=== PATIENT | female | born 1940 | race Caucasian/White ===

== ENCOUNTER 2025-05-26 10:03 | Day surgery (SDC) | payer MEDICARE, SELFPAY ==
[2025-05-22 15:05] VITALS: BMI 31.8
--- NOTE | ~2025-05-26 | FL_ITS ---
EXAMINATION: [place] GUIDANCE ONLY HISTORY: Procedural guidance COMPARISON: None available. TECHNIQUE: Fluoroscopy time: 14 seconds. Cumulative Dose: 3.60 mGy. DAP: 157.95 uGym2 Images: 1. FINDINGS: A single fluoroscopic spot film of the lumbar spine demonstrates a needle and contrast material in the region of the left L5-S1 facet joints. FL/FL guidance in OR IMPRESSION: Fluoroscopy during procedure. Please see procedure report for additional information. Electronically signed by: Gerson Abdi MD 05/26/2025 11:40 AM [facility]
--- NOTE | 2025-05-26 10:23 | HO.ANESPROP2 ---
[facility] Active Problems Active Problems: All Active Problems History of breast cancer (Acute) Obesity (BMI 30.0-34.9) (Acute) Neuropathy (Acute) GERD (gastroesophageal reflux disease) (Acute) Pure hypercholesterolemia (Acute) Essential hypertension (Acute) Lumbar radiculitis (Acute) Past Medical History Medical History Breast cancer Diabetes GERD (gastroesophageal reflux disease) Elevated cholesterol HTN (hypertension) Lumbar radiculitis Family History Family History Mother Alzheimer disease Mental health disorder Father Prostate cancer Surgical History Surgical History History of partial mastectomy of left breast History of knee surgery History of cholecystectomy History of lung surgery History of hysterectomy History of Problems with Anesthesia: No Social History Social History Housing: House Alcohol intake: current Alcohol intake frequency: holidays/special occasions only Alcohol type: beer and wine Patient Tobacco Use Status: Never used Tobacco e-Cigarette/Vaping Use: Never Used Second Hand Smoke Exposure: No Use of substances other than those prescribed or required for medical reasons: No Advance Directives: No Advance Directives Information Provided: Yes service: No Current occupational status: disabled Cognitive needs: Yes Hearing needs: No Vision needs: No Meds Allergies Allergy/AdvReac Type Severity Reaction Status Date / Time acetaminophen (From Vicodin) AdvReac Mild stomach Verified 12/22/21 13:07 irritation aspirin AdvReac Mild stomach Verified 12/22/21 13:07 irritation carisoprodol (From Soma) AdvReac Mild stomach Verified 12/22/21 13:07 irritation hydrocodone (From Vicodin) AdvReac Mild stomach Verified 12/22/21 13:07 irritation Active Medications: Current Medications Lactated Ringer's (Lr) 1,000 mls @ 100 mls/hr IVCONT .Q10H AMIRA Home Medications ?Medication ?Instructions ?Recorded ?Confirmed ?Last Taken ?Type atorvastatin 10 mg tablet 10 mg PO DAILY 12/22/21 05/22/25 Unknown History betamethasone valerate 0.1 % appl topical 12/22/21 12/22/21 Unknown History topical cream gabapentin 800 mg tablet 800 mg PO BEDTIME 12/22/21 12/22/21 Unknown History omeprazole 20 mg capsule,delayed 20 mg PO BID 12/22/21 05/22/25 Unknown History release anastrozole 1 mg tablet 1 mg PO DAILY 05/22/25 05/22/25 Unknown History cyclobenzaprine 10 mg tablet 10 mg PO BEDTIME 05/22/25 05/22/25 Unknown History lisinopril 10 mg tablet 10 mg PO DAILY 05/22/25 05/22/25 Unknown History tramadol 50 mg tablet 50 mg PO Q6H PRN Pain 05/22/25 05/22/25 Unknown History Exam Height,Weight and Vital Signs: Height 5 ft Weight 73.8 kg Airway Mallampati Class: II (edentulous) TM Dist: >3cm Neck ROM: Full Denture: Upper and Lower Loose/Missing/Broken Teeth: Yes, Upper and Lower Heart: RRR Lungs: CTA Assessment and Plan Assessment Anesthesia Assessment: Anesthesia Plan Discussed and Chart Reviewed Final Anesthetic Review History of Problems with Anesthesia: No NPO: Yes ASA Class: III Final Preanesthetic Review: Meds/Allgs Chart Reviewed, Consent Obtained/Reviewed and Anes Risks/Benef Reviewed Patient Risk: Intermediate Procedure Risk: Low Anesthetic Plan Anesthetic Plan: MAC: Disposition: Standard PACU
--- NOTE | 2025-05-26 10:29 | MHC.SHP ---
Pre-Procedural Eval Section A - 24 Hr Update-Section A only Date of Service: 05/26/25 The patient is an INPATIENT: No Changes since office visit: No Cold of Flu in the past 2 weeks, No New Medical Problems, No Changes in Medication and No Patient answered all questions Section B - Complete if H&P > 30 days Chief Complaint: Radiculopathy, lumbar region Details of Present Illness: Chronic lumbar radiculitis spinal stenosis Relevant Family History (Specify if Yes): No Relevant Social History: None Present Medications: see Short Stay Collaborative assessment Medical History: No relevant PMH History of Previous Operations: No relevant previous surgery Allergies: Allergies Allergy/AdvReac Type Severity Reaction Status Date / Time acetaminophen (From Vicodin) AdvReac Mild stomach Verified 12/22/21 13:07 irritation aspirin AdvReac Mild stomach Verified 12/22/21 13:07 irritation carisoprodol (From Soma) AdvReac Mild stomach Verified 12/22/21 13:07 irritation hydrocodone (From Vicodin) AdvReac Mild stomach Verified 12/22/21 13:07 irritation Review of Systems Sugical H&P ROS: Negative: Constitution, Cardiovascular, Respiratory, Neurological, Psychiatric, Hem-Onc, Allergic/Immunologic, Gastrointestinal, Genitourinary, Musculoskeletal, Integumentary, Endocrine and Eyes/Ears/Nose/Throat Exam Surgical H&P Exam: Normal: HEENT, Normal: Heart, Normal: Lungs, Normal: Extremities, Normal: Abdomen, Normal: Skin and Normal: Neurological Plan Diagnosis/Plan: Unchanged I have reviewed the history and physical and performed a pertinent physical examination on my patient. No changes have occurred unless specified. Time Spent With Patient Time: Total time managing care of this patient today ____ minutes.
--- NOTE | 2025-05-26 10:30 | W.PM.OPN ---
Operative Note Operative Note Date of Service: 05/26/25 Narrative: Procedure performed: Left L5 transforaminal epidural steroid injection Preop diagnosis: Lumbar radiculitis Postop diagnosis: The same Anesthesia: Mac After informed consent was obtained, patient was placed on the procedure table in a prone position. Skin over lumbosacral area was prepped and draped in usual sterile manner. Left L5 pedicle was visualized utilizing fluoroscopy. 5 inch 22 gauge spinal needle was introduced percutaneously and advanced towards the pedicle at about 6 o'clock position. Once level of neural foramina was reached, needle placement was verified utilizing 3 cc of Omnipaque contrast solution. Excellent flow through the neural foramina and epidural spread was identified without evidence of vascular uptake. Total volume of 6 cc containing 2 cc of 1% lidocaine, 40 mg of triamcinolone and normal saline solution were injected after negative aspiration for blood and cerebrospinal fluid. Radiation exposure was documented in the chart.
[2025-05-26 10:32] VITALS: BP 176/82; PULSE 102; RESP 20; TEMP 37.2; O2SAT 95
[2025-05-26] MEDS: Lactated Ringers 1,000 ML 100 ML IVCONT (10:37)
[2025-05-26 10:38] LABS: Glucose, Whole Blood 133 mg/dL (60-115)
[2025-05-26 11:14] VITALS: BP 164/77; PULSE 91; RESP 18; TEMP 36.7; O2SAT 100
[2025-05-26 11:29] VITALS: BP 154/75; PULSE 94; RESP 16; TEMP 36.7; O2SAT 96
--- OUTSIDE RECORDS SUMMARY | 2025-05-26 11:56 | XMS_ITS | Clinical Summary ---
Author Organization [facility] Address [address] [place] [address] Care Team Providers Care Market Relationship Manager Name Role Phone Saba Denny MD Primary Care Prov ider Allergies Active Allergy Reactions Criticality Noted Date Comments Aspirin 01/19/2023 Carisoprodol 09/22/2006 Other reaction(s): Numbness, tingling or swelling of the lips, tongue or mouth Hydrocodone 01/19/2023 Hydrocodone-Acetaminoph en Nausea And Vomiting 09/22/2006 Pravastatin 10/20/2014 Diarrhea, abd pain Medications Medication Sig Dispensed Refills Start Date End Date Status atorvastatin (LIPITOR) tablet 10 mg Take 1 tablet (10 mg total) by mouth every evening. 0 Active chlorthalidone (HYGROTON) 25 MG tablet Take 1 tablet (25 mg total) by mouth daily. 0 Active clopidogrel (PLAVIX) 75 MG tablet Take 1 tablet (75 mg total) by mouth daily. 0 Active dicyclomine (BENTYL) 10 MG capsule Take 1 capsule (10 mg total) by mouth 4 (four) times a day before meals and at bedtime. 0 Active FLUoxetine (PROzac) 20 MG capsule Take 1 capsule (20 mg total) by mouth daily. 0 Active gabapentin (NEURONTIN) 800 MG tablet Take 1 tablet (800 mg total) by mouth every night at bedtime. 0 Active loperamide (IMODIUM) 2 MG capsule Take 1 capsule (2 mg total) by mouth 4 (four) times a day as needed for diarrhea. 0 Active LORazepam (ATIVAN) 0.5 MG tablet Take 1 tablet (0.5 mg total) by mouth as needed for anxiety. 0 Active omeprazole (PriLOSEC) 20 MG capsule Take 1 capsule (20 mg total) by mouth 2 (two) times a day. 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 Overview: Incidental finding Obesity 06/16/2014 Carpal tunnel syndrome 03/05/2013 Overview: bilateral 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 01/02/2012 Overview: On Aromasin until 2016 - stopped due to osteoporosis HTN (hypertension) 05/23/2011 Osteoporosis 04/19/2011 Overview: On alendronate, stopped 2015 ?GI side effects Anxiety state 04/18/2007 Family History Medical History Relation Name Comments Prostate cancer Father Cancer Sister Relation Name Status Comments Father Mother Sister Social History Tobacco Use Types Packs/Day Years Used Date Smoking Tobacco: Never Smokeless Tobacco: Never Tobacco Cessation:Counseling Given: Not Answered Alcohol Use Standard Drinks/Week Comments Not Currently 0 (1 standard drink = 0.6 oz pur e alcohol) Sex and Gender Information Value Date Recorded Sex Assigned at Female 01/02/2023 3:38 PM EDT Gender Identity Not on file Sexual Orientation Not on file Job Start Date Occupation Industry Not on file Not on file Not on file Last Filed Vital Signs Vital Sign Reading Time Taken Comments Blood Pressure 145/68 12/13/2023 11:13 AM EDT Pulse 88 12/13/2023 11:13 AM EDT Temperature 37.4 C (99.3 F) 12/13/2023 11:13 AM EDT Respiratory Rate - - Oxygen Saturation 96% 12/13/2023 11:13 AM EDT Inhaled Oxygen Concentration - - Weight 75.8 kg (167 lb) 12/13/2023 11:13 AM EDT Height 152.4 cm (5') 12/13/2023 10:27 AM EDT Body Mass Index 32.61 12/13/2023 10:27 AM EDT Plan of Treatment Health Maintenance Due Date Last Done Comments Depression Screening 1952 BMI Counseling 02/06/1958 Preventative Health Evaluation 02/06/1958 Shingrix-Zoster Vaccine (1 of 2) 02/06/1959 Fall Risk Assessment 02/06/2005 Osteoporosis Screening (DEXA Scan) 02/06/2005 RSV Adult > 60+ Yrs or (1 - 1-dose 75+ series) 02/06/2015 COVID-19 Vaccine ( season) 2025 07/19/2021, 09/09/2020, 08/17/2020 Influenza Vaccine (#1) 2025 3, 04/19/2022, 06/03/2021, Additional history exists DTap / Tdap / Td (2 - Td or Tdap) 06/12/2025 06/12/2015 Pneumococcal Vaccine Completed 01/28/2016, 10/27/19 10 Hepatitis B Vaccines Aged Out No long er eligible based on patient's age to complete this topic RSV Ped < 20 months Aged Out No longe r eligible based on patient's age to complete this topic Care Teams Market Relationship Manager Relationship Specialty Start Date End Date Saba Denny MD [address] [place] [address] PCP - General Internal Medicine 01/02/23
--- OUTSIDE RECORDS SUMMARY | 2025-05-26 11:56 | XMS_ITS ---
Author Name [facility] Organization Unknown Care Team Organization Name Specialty Phone Email Start Date End Da te [facility] 02/19/2025 [facility] Saba Denny Primary Care 06/14/2023 02/19/2024 [facility] Giselle Webster Primary Care 03/09/20232023 [facility] Nely Primary Care 05/10/2022 02/19/2024
--- OUTSIDE RECORDS SUMMARY | 2025-05-26 11:56 | XMS_ITS | Clinical Summary ---
Author Organization [facility] Address [address] [place] [address] Phone Care Team Providers Care [employer] Name Role Phone Saba Correa MD Primary Care Prov ider Allergies Active Allergy Reactions Criticality Noted Date Comments Aspirin Nausea Only Low 07/28/2016 Carisoprodol High 09/22/2006 Other reaction(s): Numbness, tingling or swelling of the lips, tongue or mouth Other Reaction(s): Numbness, tingling or swelling of the lips, tongue or mouth Hydrocodone 01/19/2023 Hydrocodone-Acetaminoph en Nausea And Vomiting Low 09/22/2006 Pravastatin Low 10/20/2014 Diarrhea, abd pain Simvastatin Itching Low 09/28/2011 Medications betamethasone valerate (VALISONE) 0.1 % cream APPLY TO RASH ON NAPE 1-2 TIMES A DAY FOR 2 WEEKS OR UNTIL HEALED 30 g 2 07/18/2024 Active atorvastatin (LIPITOR) 10 mg tablet TAKE ONE TABLET BY MOUTH EVERY DAY 90 tablet 1 09/03/2024 Active anastrozole (ARIMIDEX) 1 mg Take 1 tablet (1 mg total) by mouth 1 (one) time each day Swallow whole with a drink of water. 90 tablet 3 09/17/2024 Active omeprazole (PriLOSEC) [address] capsule TAKE ONE CAPSULE BY MOUTH EVERY DAY 90 capsule 1 10/17/2024 Active cyclobenzaprine (FLEXERIL) 10 mg tablet TAKE ONE TABLET BY MOUTH EVERY DAY IN THE EVENING NEEDED 11/05/2024 Active traMADoL (ULTRAM) 50 mg tablet TAKE ONE TABLET BY MOUTH FOUR TIMES A DAY NEEDED FOR 7 DAYS 11/05/2024 Active lisinopriL (PRINIVIL,ZESTR IL) 10 mg tablet Take 1 tablet (10 mg total) by mouth 1 (one) time each day. 90 each 1 12/27/2024 Active Active Problems Problem Noted Date Diagnosed Date Lumbar stenosis with neurogenic claudication Assessment & Plan (10/08/2024 11:31 AM EDT): Ms. Beebe reports that with physical therapy and injections she is feeling better. Her bowel trouble has completely resolved. She had some trouble with her right knee swelling and had to take a little bit of time off from therapy. She is scheduled for another injection with Dr. Kc late in October. Would not consider surgery on her back and given that she has had such improvement I would agree with her. She can follow-up with us in the future on an as-needed basis. Assessment & Plan (07/23/2024 12:37 PM EST): Ms. Gino Beebe describes low back pain with radiation to the buttocks and down the legs in an L5 and S1 distribution. This has been going on for years but has gotten worse recently. In the past she has had injections with Dr. Kc and obtained relief. She also reports intermittent incontinence of bowels and describes it as diarrhea. She says it has been going on for years. She denies urinary incontinence or perineal numbness. She has normal strength in the lower extremities. The MRI of the lumbar spine from [facility] dated July 02, 2024 shows moderate to severe stenosis at L3-4 and moderate stenosis at L4-5. I explained to the patient that I did not think her lumbar stenosis was related to her bowel issues. The stenosis is not so severe that it would be likely to cause bowel issues. I further explained that spinal stenosis does not usually cause bowel issues without lower extremity weakness or without causing perineal numbness. She does admit to some urinary frequency and says that her urine is foul-smelling. She has a history of urinary tract infections and would like to get checked. I will send her for a UA, C&S. We will refer her to Dr. Kc for consideration of an injection. She will go to physical therapy directed at the low back. She will follow-up with us in approximately 2 months for repeat evaluation or sooner if things are getting worse. Urinary frequency 07/23/2024 Assessment & Plan (07/23/2024 12:38 PM EST): Ms. Gino Beebe describes urinary frequency and foul-smelling urine. She has a history of urinary tract infections and thinks she might have 1 now. She asked that I check. I will send her for a UA, culture and sensitivity. She is not incontinent of urine and denies any perineal numbness or tingling. Abdominal cramping 04/17/2024 Abdominal pain 04/17/2024 Change in bowel habits 04/17/2024 IBS (irritable bowel syndrome) 04/17/2024 Lobular breast cancer, left ([facility] V24, CMS/HC C V28) 03/02/2023 Assessment & Plan (12/27/2024 9:47 AM EDT): Patient underwent a partial left mastectomy. On anastrozole. She follows regularly with oncology and surgery. Diabetes type 2, controlled (CMS/HCC V24, CMS/HC C V28) 06/07/2022 Assessment & Plan (12/27/2024 9:47 AM EDT): A1c: 6.4. Not on medications. Good control of diabetes on a diet. Patient will continue with yearly Podiatric and Ophthomologic evaluations. Will start Angiotensin Converting Enzyme Inhibitor for renal protection. We will check a hemoglobin A1c, electrolytes, BUN, creatinine before her next visit. Patient will follow up in 3 months Intestinal metaplasia of gastric mucosa 12/20/19 Overview (04/17/2024): 2009: no dysplasia. 2020: no dysplasia. Consider EGD and bx 2022. Retinal hemorrhage of right eye 04/16/2019 Knee MCL sprain 10/29/2018 Overview (04/17/2024): Mri Of knee 09/06/2018: Intermediate grade MCL sprain with underlying meniscocapsular separation. Severe patellofemoral compartment degeneration with milder medial and lateral compartment degeneration. Low-lying patella. Mild quadriceps tendinosis. Neuropathic pain 10/16/2018 Hypercholesteremia 07/10/2017 Assessment & Plan (12/27/2024 9:47 AM EDT): Currently on Atorvastatin 10mg a day. We will continue same medication. Patient is instructed on a low-fat diet and exercise regularly. Adenoma of left adrenal gland 07/30/2015 Overview (04/17/2024): Incidental finding Incidental finding Obesity 06/16/2014 Carpal tunnel syndrome 03/05/2013 Overview (04/17/2024): bilateral bilateral HTN (hypertension) 05/23/2011 Assessment & Plan (12/27/2024 9:47 AM EDT): Not well controlled on chlorthalidone. Today 145/88, recent episode of hypokalemia. Discontinue chlorthalidone and start lisinopril 10 mg. Instructed to follow a low salt diet and regular exercise. Will follow-up in 3 months. Pending routine blood work for kidney function, electrolytes in 2 weeks. 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 Depression 06/11/2007 Anxiety state 04/18/2007 Anxiety state 04/18/2007 Backache 05/13/2005 Overview (04/17/2024): IMO update Esophageal reflux 05/13/2005 Urinary tract infection 05/13/2005 Immunizations Immunization Administration Dates Next Due Hepatitis A Adult (Havrix; V aqta) 19yo and older 02/11/2014 Influenza Quadravalent, MDCK , 0.5ml, with preservative (Flucelvax) 6mo and older 06/08/2017 Influenza trivalent, 0.5mL ( Fluad) 65yo and older 07/29/2024,05/26/2023,04/19/2022,06/03,02/27/2020,05/21/2019,03/28/2018 Influenza trivalent, 0.5mL, preservative free (Fluarix; FluLaval; Fluzone) ages 6mo and older (Afluria) 3 years and older 03/20/2015,04/21/2014,05/17/2013,05/31,04/19/2011,04/05/2009,05/31/2007 ,04/12/2006,04/26/2005 Pfizer Covid-19 Bivalent, Or iginal + Ba.1 (Non-US Trademark [employer] Bivalent) 04/29/2022 Pneumococcal conjugate 13 va lent (Prevnar 13, PCV13) 2mo and older 01/28/2016 Pneumococcal polysaccharide 23 valent (Pneumovax 23) 2yo and older 10/26/2009 Td Tetanus diptheria (Tdvax) 7yo and older 08/27/2004 Tdap Tetanus diptheria acell ular pertussis (Boostrix; Adacel) 7yo and older 06/12/2015 Surgical History Surgery Date Site/Laterality Comments OTHER SURGICAL HISTORY PROCEDURE: MD RMVL LUNG OTHER THAN PNEUMONECTOMY 1 LOBE LOBECT; COMMENT: right OTHER SURGICAL HISTORY PROCEDURE: MD ANES KNEE & POPLITEAL ARTERY VEIN FISTULA NOS CHOLECYSTECTOMY 1984 PROCEDURE: HISTORICAL CHOLECYSTECTOMY OTHER SURGICAL HISTORY PROCEDURE: HISTORICAL TOTAL HYSTERECTOMY W/O BSO COLONOSCOPY 04/02/2008 PROCEDURE: HISTORICAL COLONOSCOPY; COMMENT: Up to cecum, good preparation, normal colon exam CATARACT EXTRACTION PROCEDURE: HISTORICAL CATARACT REMOVAL; COMMENT: bilateral UPPER GASTROINTESTINAL ENDOSCOPY 10/26/2015 PROCEDURE: MD UPPER GI ENDOSCOPY PERFORMED; COMMENT: bx of antral erosions: benign; no H. pylori. CARPAL TUNNEL RELEASE 2012 Right PROCEDURE: MD NEUROPLASTY &/TRANSPOS MEDIAN NRV CARPAL TUNNE; COMMENT: Dr. Escobeod UPPER GASTROINTESTINAL ENDOSCOPY 01/16/2009 PROCEDURE: MD UPPER GI ENDOSCOPY PERFORMED; COMMENT: Esophagus Nl. Gastritis-biopsy:atrophic gastritis with extensive intestinal metaplasia (HPylori+, treated), Nl SB-biopsy:Normal UPPER GASTROINTESTINAL ENDOSCOPY 01/16/2020 PROCEDURE: MD UPPER GI ENDOSCOPY PERFORMED; COMMENT: Visually normal; duodenal biopsies obtained, 5 quadrant biopsies/mapping of intestinal metaplasia of the gastric mucosa obtained: 4/5 pos for GIM, no dys; duodenal bx normal. COLONOSCOPY 01/16/2020 PROCEDURE: HISTORICAL COLONOSCOPY; COMMENT: Visually normal; random biopsies obtained to evaluate chronic diarrhea: normal. BREAST SURGERY Right PROCEDURE: MD UNLISTED PROCEDURE BREAST; COMMENT: rt lumpectomy w radiation BREAST BIOPSY 2011 PROCEDURE: BX BREAST; PERC NEEDLE CORE W/IMAG GUID; COMMENT: rt x 2011 precancerous OTHER SURGICAL HISTORY 01/31/2023 Left PROCEDURE: MD MASTECTOMY PARTIAL; COMMENT: Left breast partial mastectomy BREAST LUMPECTOMY 2022 Left PROCEDURE: HISTORICAL BREAST LUMPECTOMY; COMMENT: left CARPAL TUNNEL RELEASE Left w/ TF release of long finger Medical History Medical History Date Comments Depression 06/11/2007 DX:Depression Esophageal reflux DX:Esophageal reflux HTN (hypertension) 05/23/2011 DX:HTN (hyper tension) Personal history of malignan t neoplasm of breast 12/15/2011 DX:Personal history of malig nant neoplasm of breast; COMMENT: rt breast ca Refusal of blood transfusion s as patient is Taoist DX:Refusal of blood trans fusions as patient is Taoist Neuropathic pain 10/16/2018 DX:Neuropathic pain Retinal hemorrhage of right eye 04/16/2019 DX:Retinal hemorrhage of right eye IBS (irritable bowel syndrome) D X:IBS (irritable bowel syndrome) Abdominal pain DX:Abdominal hernán n Abdominal cramping DX:Abdominal cramping Change in bowel habits DX:Change in bowel habits Prediabetes 06/07/2022 DX:Prediabetes Fecal urgency DX:Fecal urgency Abdominal cramping DX:Abdominal cramping Functional dyspepsia DX:Function al dyspepsia Diabetes type 2, controlled ([facility] V24, [facility] V28) 06/07/2022 DX:Diabetes type 2, controll ed ([facility]) Breast CA ([facility]/HCC V24, CMS/HCC V28) 2022 DX:Breast CA (HCC); COMMENT: left lobular carcinoma Family History Medical History Relation Name Comments No Known Problems Aunt No Known Problems Brother 1 No Known Problems Brother 2 Blindness Brother 3 Cataracts Brother 3 Other cancer Brother 3 unknown primary - had in liver and kidney? No Known Problems Daughter Prostate cancer Father No Known Problems Maternal Grandfather No Known Problems Maternal Grandmother Alzheimer's disease Mother Cataracts Mother No Known Problems Other No Known Problems Paternal Grandfather No Known Problems Paternal Grandmother No Known Problems Sister No Known Problems Son 1 No Known Problems Son 2 No Known Problems Uncle Breast cancer Neg Hx Colon cancer Neg Hx Glaucoma Neg Hx Macular degeneration Neg Hx Stomach cancer Neg Hx Strabismus Neg Hx Relation Name Status Comments Aunt Brother 1 Alive diabetes Brother 2 Alive diabetes Brother 3 Daughter Alive Father (Age 99) Maternal Grandfather Maternal Grandmother Mother (Age 89) diabetes Other Paternal Grandfather Paternal Grandmother Sister Alive Son 1 Alive diabetes Son 2 Alive Uncle Social History Tobacco Use Types Packs/Day Years Used Date Smoking Tobacco: Never Smokeless Tobacco: Never Tobacco Cessation:Counseling Given: Not Answered Alcohol Use Standard Drinks/Week Comments Yes 0 (1 standard drink = 0.6 oz pur e alcohol) Comments No Sex and Gender Information Value Date Recorded Sex Assigned at Female 08/14/2024 2:01 PM EST Legal Sex Female 6:17 PM EST Gender Identity Female 08/14/2024 2:01 PM EST Sexual Orientation Straight 08/14/2024 2: 01 PM EST Obstetrics History Para Term AB IAB SAB Ectopic Multiple Livin g Live Births 3 Last Filed Vital Signs Vital Sign Reading Time Taken Comments Blood Pressure 167/96 02/18/2025 4:09 PM EDT Pulse 96 02/18/2025 4:09 PM EDT Temperature 36.5 C (97.7 F) 02/18/2025 4:09 PM EDT Respiratory Rate 16 12/27/2024 9:12 AM EDT Oxygen Saturation 96% 12/12/2024 2:05 PM EDT Inhaled Oxygen Concentration - - Weight 73.8 kg (162 lb 12.8 oz) 12/27/2024 9:12 AM EDT Height 152.4 cm (5') 12/27/2024 9:12 AM EDT Body Mass Index 31.79 12/27/2024 9:12 AM EDT Plan of Treatment Upcoming Encounters Date Type Department Care Team (Late st Contact Info) Description 06/12/2025 10:30 AM EST Office Visit [facility] Hematology Oncology [address] [place] [phone] Karin Hager DO [address] [place] [phone] 06/12/2025 11:00 AM EST Appointment [facility] [address] [place] [phone] 08/14/2025 11:20 AM EST [facility] [address] [phone] Alec Messer MD [address] [place] [phone] 11/20/2025 10:00 AM EDT Appointment [facility] [address] [phone] Health Maintenance Due Date Last Done Comments Diabetes: Annual Retina Eye Exam 02/06/1950 Zoster Vaccines (1 of 2) 02/06/1959 RSV Immunization Adult Patients (1 - 1-dose 75+ series) 02/06/2015 Medicare Annual Wellness Visit 06/11/2022 Diabetes: Annual Foot Exam 09/19/2024 09/20/2023 COVID-19 Vaccine ( season) 2025 07/19/2021, 09/09/2020, 08/17/2020 Influenza Vaccine (#1) 2025 , 05/26/2023, 04/19/2022, Additional history exists Social Influencers of Health Screening 05/08/2025 05/08/2024 DTaP,Tdap,and Td Vaccines (3 - Td or Tdap) 06/12/2025 06/12/2015, 08/27/2004 Diabetes: Annual Urine Albumin-Creatinine Ratio (uACR) 06/24/2025 06/24/2024, 09/20/2023 Diabetes: Blood Sugar Control Test (HGBA1C) 06/28/2025 12/27/2024, 06/24/2024, 09/11/2023 Falls Risk Assessment 12/12/2025 12/12/2024, 024 Diabetes: Annual GFR (Glomerular Filtration Rate) 12/27/2025 12/27/2024, 12/10/2024, 09/02/2024, Additional history exists Hypertension/CHF/CAD Annual BMP Blood Test 12/27/2025 12/27/2024, 12/10/2024, 09/02/2024, Additional history exists Cholesterol Screening (Lipid Panel) 06/24/2029 06/24/2024, 09/11/2023 Osteoporosis Screening (Bone Density Screening) 12/30/2034 12/30/2024, 12/29/2023, 12/05/2022, Additional history exists Hepatitis A Vaccines Aged Out 02/11/2014 No long er eligible based on patient's age to complete this topic Pneumococcal Vaccine: 50+ Years Completed 01/28/2016, 10/26/2009 Depression Screening Completed 11/11/2024, 09/20/19 24 HIB Vaccines Aged Out No longer eligi ble based on patient's age to complete this topic HPV Vaccines Aged Out No longer eligi ble based on patient's age to complete this topic Hepatitis B Vaccines Aged Out No long er eligible based on patient's age to complete this topic IPV Vaccines Aged Out No longer eligi ble based on patient's age to complete this topic MMR Vaccines Aged Out No longer eligi ble based on patient's age to complete this topic Meningococcal ACWY Vaccine Aged Out N o longer eligible based on patient's age to complete this topic Meningococcal B Vaccine Aged Out No l onger eligible based on patient's age to complete this topic RSV Immunization Patients Under 20 months Aged Out No longer eligible based on patient's age to complete this topic Varicella Vaccines Aged Out No longer eligible based on patient's age to complete this topic Goals Goal Patient Goal Type Associated Problems Recent Progress Patient-Stated? Author No pain General Yes Alberto Walker, PT PT STG x 8 visits General No Alberto Walker, PT Note: Pt will report average pain level decrease of 2 /10 and Pt will increase sitting capacity to 2.5 hrs Pt will improve hip abd on R to 4-/5 and 3/5 L Pt will improve hip add to >4-/5 B PT LTG x 15 visits General No Alberto Walker, PT Note: Pt will improve lumbar flexion to 85 degrees to allow dressing LE without assist, Pt will be able to vacuum/sweep/mot home without having to rest due to back pain Pt will be able to reach overhead cabinets without being limited by back pain Pt sitting capacity will no limit [employer] Procedures Procedure Name Priority Date/Time Associated Diagnosis Comments BD BONE DENSITY DXA AXIAL SKELETON Routine 12/30/2024 10:26 AM EDT Lobular breast cancer, left (CMS/HCC V24, CMS/HCC V28) Osteopenia, unspecified location Osteopenia after menopause BASIC METABOLIC PANEL Routine 12/27/2024 10:09 AM EDT Dysuria Urinary frequency Controlled type 2 diabetes mellitus without complication, without long-term current use of insulin (CMS/HCC V24, CMS/HCC V28) HEMOGLOBIN A1C Routine 12/27/2024 10:09 AM EDT Dysuria Urinary frequency Controlled type 2 diabetes mellitus without complication, without long-term current use of insulin (CMS/HCC V24, CMS/HCC V28) MICROALBUMIN CREATININE URINE RATIO Routine 06/24/2024 3:10 PM EST Controlled type 2 diabetes mellitus with diabetic mononeuropathy, without long-term current use of insulin (CMS/HCC V24, CMS/HCC V28) LIPID PANEL WITH REFLEX TO DIRECT LDL Routine 06/24/2024 3:10 PM EST Controlled type 2 diabetes mellitus with diabetic mononeuropathy, without long-term current use of insulin (CMS/HCC V24, CMS/HCC V28) DEPRESSION SCREENING Routine 09/20/2023 DIABETES FOOT EXAM Routine 09/20/2023 FALLS RISK ASSESSMENT Routine 08/08/2023 from Last 3 Months or Most Recently Relevant to Health Maintenance Results * BD Bone Density DXA Axial Skeleton (12/30/2024 10:26 AM EDT) Anatomical Region Laterality Modality Wrist, Hip, L-spine Bone Densito metry 12/30/2024 10:3 0 AM EDT Impressions 12/30/2024 10:31 AM EDT 1. Osteopenia. There has been a decrease of 0.2% in bone mineral density in the lumbar spine since the prior examination of 12/21/2023. There has been an increase of 2.5% in bone mineral density in the right femur and a decrease of 2.2% in bone mineral density in the left femur. 2. FRAX analysis yields a 10-year probability of major osteoporotic fracture of 17.8% and a 10-year probability of hip fracture of 3.9%. Code 33464 -------- FINAL REPORT -------- Dictated By: Giles Hernández Dictated Date: 12/30/2024 10:30 ET Assigned Physician: Giles Hernández Reviewed and Electronically Signed By: Giles Hernández Signed Date: 12/30/2024 10:31 ET Workstation ID: [id number] Transcribed By: Self Edit Transcribed Date: 12/30/2024 10:30 ET Narrative 12/30/2024 10:31 AM EDT HISTORY: The patient is an 84-year-old postmenopausal female with clinical concern for metabolic bone disease. FINDINGS: Dual energy x-ray absorptiometry of the lumbar spine and femurs is performed. The mean bone mineral density at L1-L4 is 0.982 gm/cm2 which is 83% of that of young normals and 100% of that of age matched controls. This yields a T-score of -1.6 and a Z-score of 0.0 which is diagnostic of osteopenia. The mean bone mineral density of the femurs bilaterally is 0.973 gm/cm2 which is 97% of that of young normals and 130% of that of age matched controls. This yields a T-score of -0.3 and a Z-score of 1.8 and there is therefore no evidence of osteoporosis or osteopenia here. However, the T-score of the right femoral neck is -1.3 and that of the left femoral neck is -1.1 which is diagnostic of osteopenia. Procedure Note Giles Hernández MD - 12/30/2024 HISTORY: The patient is an 84-year-old postmenopausal female withclinical concern for metabolic bone disease. FINDINGS: Dual energy x-ray absorptiometry of the lumbar spine and femursis performed. The mean bone mineral density at L1-L4 is 0.982 gm/cm2 whichis 83% of that of young normals and 100% of that of age matched controls.This yields a T-score of -1.6 and a Z-score of 0.0 which is diagnostic ofosteopenia. The mean bone mineral density of the femurs bilaterally is 0.973 gm/ex9rhqbr is 97% of that of young normals and 130% of that of age matchedcontrols. This yields a T-score of -0.3 and a Z-score of 1.8 and there istherefore no evidence of osteoporosis or osteopenia here. However, theT-score of the right femoral neck is -1.3 and that of the left femoralneck is -1.1 which is diagnostic of osteopenia. IMPRESSION: 1. Osteopenia. There has been a decrease of 0.2% in bone mineral densityin the lumbar spine since the prior examination of 12/21/2023. There hasbeen an increase of 2.5% in bone mineral density in the right femur and adecrease of 2.2% in bone mineral density in the left femur. 2. FRAX analysis yields a 10-year probability of major osteoporoticfracture of 17.8% and a 10-year probability of hip fracture of 3.9%. Code 17489 -------- FINAL REPORT -------- Dictated By: Giles Hernández Dictated Date: 12/30/2024 10:30 ET Assigned Physician: Giles Hernández Reviewed and Electronically Signed By: Giles Hernández Signed Date: 12/30/2024 10:31 ET Workstation ID: [id number] Transcribed By: Self Edit Transcribed Date: 12/30/2024 10:30 ET us Karin Valenzuela Madan DO IMG DXA PROCEDURES Fi nal Result * (ABNORMAL) Hemoglobin A1c (12/27/2024 10:09 AM EDT) [facility] Hemoglobin A1C 7.4(H) <6.5 % LAB CHEMISTRY METHOD 12/27/2024 2:28 PM EDT [facility] Mean Bld Glu Estim. 166 mg/dL LAB CHEMISTRY METHOD 12/27/2024 2:28 PM EDT [facility] Blood Venous blood specimen / Unknown Venipuncture / Unknown 12/27/2024 10:09 AM EDT 12/27/2024 10:09 AM EDT Roel Beasley DESIGN DIRECTOR LAB BLOOD ORDERABLES Final R esult [facility] [address] [place] [address], * (ABNORMAL) Basic metabolic panel (12/27/2024 10:09 AM EDT) [facility] Sodium 141 133 - 145 mmol/L LAB CHEMISTRY METHOD 12/27/2024 12:40 PM EDT [facility] Potassium 3.2(L) 3.5 - 5.5 mmol/L LAB CHEMISTRY METHOD 12/27/2024 12:40 PM EDT [facility] Chloride 98 96 - 110 mmol/L LAB CHEMISTRY METHOD 12/27/2024 12:40 PM EDT [facility] CO2 35(H) 21 - 32 mmol/L LAB CHEMISTRY METHOD 12/27/2024 12:40 PM T [facility] Anion Gap 8 3 - 11 LAB CHEMISTRY METHOD 12/27/2024 12:40 PM EDT [facility] Glucose 109(H) 70 - 100 mg/dL LAB CHEMISTRY METHOD 12/27/2024 12:40 PM EDT [facility] BUN 21 5 - 25 mg/dL LAB CHEMISTRY METHOD 12/27/2024 12:40 PM EDT [facility] Creatinine 0.98 0.50 - 1.10 mg/dL LAB CHEMISTRY METHOD 12/27/2024 12:40 PM EDT [facility] eGFR 57(L) >=60 mL/min/1. 73m2 LAB CHEMISTRY METHOD 12/27/2024 12:40 PM EDT [facility] Comment:Calculation based on the Chronic Kidney Disease Epidemiology Collaboration (CKD-EPI) equation refit without adjustment for race. BUN/Creatinine Ratio 21.4 LAB CHEMISTRY METHOD 12/27/2024 12:40 PM EDT [facility] Calcium 9.6 8.5 - 10.5 mg/dL LAB CHEMISTRY METHOD 12/27/2024 12:40 PM EDT [facility] Blood Venous blood specimen / Unknown Venipuncture / Unknown 12/27/2024 10:09 AM EDT 12/27/2024 10:09 AM EDT us Roel Beasley DESIGN DIRECTOR LAB BLOOD ORDERABLES Final R esult [facility] [address] [place] [address], * (ABNORMAL) Lipid panel with reflex to direct LDL (06/24/2024 3:10 PM EST) Cholesterol 168 0 - 200 mg/dL LAB CHEMISTRY METHOD 06/24/2024 4:12 PM EST [facility] Triglycerides 208(H) 0 - 150 mg/dL LAB CHEMISTRY METHOD 06/24/2024 4:12 PM EST [facility] HDL 59 >=40 mg/dL LAB CHEMISTRY METHOD 06/24/2024 4:12 PM EST [facility] LDL Calculated 67 0 - 100 mg/dL LAB CHEMISTRY METHOD 06/24/2024 4:12 PM EST [facility] VLDL Cholesterol Jon 41.6 mg/dL LAB CHEMISTRY METHOD 06/24/2024 4:12 PM EST [facility] Non HDL Chol. (LDL+VLDL) 109 <145 mg/dL LAB CHEMISTRY METHOD 06/24/2024 4:12 PM EST [facility] Chol/HDL Ratio 2.8 0.0 - 4.4 LAB CHEMISTRY METHOD 06/24/2024 4:12 PM EST [facility] Blood Venous blood specimen / Unknown Venipuncture / Unknown 06/24/2024 3:10 PM EST 06/24/2024 3:11 PM EST us Rhonda White PA LAB BLOOD ORDERABLES Final Resul t Performing Organization Address [facility] Co de Phone Number [facility] [address] [place] [address], [place] [phone] * Microalbumin creatinine urine ratio (06/24/2024 3:10 PM EST) Creatinine, Urine 169.0 mg/dL LAB CHEMISTRY METHOD 06/24/2024 4:21 PM [facility] Microalb, Ur 22.7 0.0 - 29.0 mg/L LAB CHEMISTRY METHOD 06/24/2024 4:21 PM EST [facility] Microalb/Creat Ratio 13 <30 mg/g creat LAB CHEMISTRY METHOD 06/24/2024 4:21 PM [facility] Urine Urine specimen obtained by clean catch procedure / Unknown Non-blood Collection / Unknown 06/24/2024 3:10 PM EST 06/24/2024 3:11 PM EST us Rhonda White PA LAB URINE ORDERABLES Final Resul t Performing Organization Address [facility]/ZIP Co de Phone Number [facility] [address] [place] [address], [place] [phone] * Depression Screening (09/20/2023) Depression Screening Abstracted Historical Provider MD HEALTH MAINTENANCE Final Result * Diabetes Foot Exam (09/20/2023) Diabetes: Annual Foot Exam Abstracted Historical Provider HEALTH MAINTENANCE Final Result * Falls Risk Assessment (08/08/2023) Falls Risk Assessment Abstracted Historical Provider HEALTH MAINTENANCE Final Result from Last 3 Months or Most Recently Relevant to Health Maintenance Additional Health Concerns Infection Onset Date Last Indicated Norovirus 09/04/2024 09/04/2024 ESBL 11/19/2024 11/19/2024 Insurance MEDICARE [facility] Care Teams [employer] Relationship Specialty Start Date End Date Saba Correa MD [address] [place] [phone] PCP - General 01/02/23
== END 2025-05-26 12:08 | disposition home or self-care (01) ==
PROVIDERS: PCP Internal Medicine; Visit Provider Physical Medicine & Rehabilitation
PROC: (CPT 64483; principal; 2025-05-26 11:30)
DX: M54.16 Radiculopathy, lumbar region (principal); M54.50 Low back pain, unspecified; I10 Essential (primary) hypertension; E78.5 Hyperlipidemia, unspecified; E11.9 Type 2 diabetes mellitus without complications; Z90.49 Acquired absence of other specified parts of digestive tract; Z90.710 Acquired absence of both cervix and uterus; Z85.3 Personal history of malignant neoplasm of breast; Z90.12 Acquired absence of left breast and nipple; Z79.811 Long term (current) use of aromatase inhibitors; Z79.899 Other long term (current) drug therapy; Z88.6 Allergy status to analgesic agent; Z88.8 Allergy status to other drugs, medicaments and biological substances; Z88.5 Allergy status to narcotic agent; Z98.890 Other specified postprocedural states
CPT/HCPCS: 64483; 82947; J2003; J2250; J3301; Q9967

== ENCOUNTER → 2025-05-26 10:03 | Outpatient (BNV) | payer MEDICARE, SELFPAY | PROVIDERS: PCP Internal Medicine; Visit Provider Physical Medicine & Rehabilitation | DX: M54.16 Radiculopathy, lumbar region (principal) | CPT/HCPCS: 64483 ==